=== PATIENT | male | born 1995 | race Caucasian/White ===

== ENCOUNTER 2017-11-18 20:11 | Emergency (ER) | payer BC ==
[~2017-11-18] VITALS: Ht 170.1 cm; Wt 95.3 kg
[~2017-11-18 20:11] MED LIST: AUGMENTIN 875875 MG PO; Motrin,Rufen800 MG PO
[2017-11-18] MEDS ORDERED: CEPHALEXIN500 M1 PO (20:35)
[2017-11-18] MEDS ORDERED: NAPROSYN500 MG PO (20:35)
== END 2017-11-18 20:45 | disposition home or self-care (01) ==
LOC: ED 20:11
DX: T23.101A Burn of first degree of right hand, unspecified site, initial encounter (principal); T31.0 Burns involving less than 10% of body surface; X08.8XXA Exposure to other specified smoke, fire and flames, initial encounter; Y93.89 Activity, other specified; Y92.89 Other specified places as the place of occurrence of the external cause; Y99.8 Other external cause status

== ENCOUNTER → 2020-05-20 | Outpatient (CLI) | payer BC ==
[~2020-05-20] MED LIST changes: +CEPHALEXIN500 M1 PO; +NAPROSYN500 MG PO
== END | disposition home or self-care (01) ==
LOC: COVID19 16:14
PROVIDERS: ATTEND Nurse Practitioner Primary Care
DX: Z20.828 Contact with and (suspected) exposure to other viral communicable diseases (principal)

== ENCOUNTER → 2020-07-04 | Outpatient (CLI) | payer BC | END | disposition home or self-care (01) | LOC: COVID19 12:24 | PROVIDERS: ATTEND Nurse Practitioner Primary Care | DX: Z20.828 Contact with and (suspected) exposure to other viral communicable diseases (principal) ==

== ENCOUNTER → 2020-07-27 | Outpatient (CLI) | payer SELFPAY | END | disposition home or self-care (01) | LOC: COVID19 11:06 | PROVIDERS: ATTEND Nurse Practitioner Primary Care | DX: Z20.822 Contact with and (suspected) exposure to COVID-19 (principal); R69 Illness, unspecified ==

== ENCOUNTER → 2021-02-24 | Outpatient (CLI) | payer BC | END | disposition home or self-care (01) | LOC: COVID19 00:09 → LAB 00:09 → COVID19 10:00 | PROVIDERS: ATTEND Internal Medicine | DX: Z11.52 Encounter for screening for COVID-19 (principal) ==